=== PATIENT | male | born 1970 | race Caucasian/White ===

== ENCOUNTER → 2019-04-11 | Outpatient (CLI) | payer BC, OTHER ==
--- NOTE | 2019-04-11 16:12 | MR ---
Thoracic spine MRI without contrast HISTORY: Pain, history of trauma Multiplanar multisequence imaging through the thoracic spine There is no comparison Thoracic cord signal is normal. There is no significant spinal stenosis or foraminal encroachment. Th ere is a spinal curvature present at the upper thoracic spine. Thoracic vertebral bodies show preserved height and alignment. There is multilevel spondylosis with e ndplate discogenic marrow signal change. Some loss of disc height and signal is present. T2-3, T10-11 and T11-12 disc heights and signal are reduced consistent with disc desiccation and degenerative dis c disease. There is some facet arthropathy changes at the lower thoracic spine. There is no significa nt disc herniation. IMPRESSION: No evident traumatic abnormality. Degenerative disc disease. There is a spinal curvature.
== END | disposition home or self-care (01) ==
LOC: RADMRIMAIN 15:20
PROVIDERS: ATTEND Family Medicine
DX: M51.34 Other intervertebral disc degeneration, thoracic region (principal); M43.8X4 Other specified deforming dorsopathies, thoracic region
CPT/HCPCS: 72146

== ENCOUNTER → 2019-04-26 | Outpatient (CLI) | payer BC ==
--- NOTE | 2019-04-28 18:03 | MR ---
EXAMINATION TYPE: MR lumbar spine wo con DATE OF EXAM: 04/26/2019 COMPARISON: None HISTORY: LBP, BLE radic, slip and fall 04-02-19 TECHNIQUE: Multiplanar, multisequence images of the lumbar spine were acquired. FINDINGS: The lumbar spine vertebral bodies maintain normal vertebral body heights and alignment. Bon e marrow signal is within normal limits. Conus medullaris is unremarkable terminating at L1-L2. T2/T1 hyperintense vertebral body hemangioma is seen at S1 incidentally. Multilevel disc desiccation is no dave. L1-L2: There is a small broad-based disc bulge without spinal canal stenosis nor neural foraminal alfredo rowing. L2-L3: There is a broad-based disc bulge and arthropathy without spinal canal stenosis nor neural for aminal narrowing. L3-L4: There is a broad-based disc bulge and facet arthropathy resulting in very minimal bilateral ne ural foraminal narrowing without spinal canal stenosis. L4-L5: There is a small left paracentral annular tear and broad-based disc bulge with facet arthropat hy resulting in minimal bilateral neural foraminal narrowing. No spinal canal stenosis. L5-S1: There is a broad-based disc bulge and facet arthropathy without spinal canal stenosis nor neur al foraminal narrowing. IMPRESSION: Mild multilevel degenerative disc disease of the lumbar spine without focal disc herniation or spinal canal stenosis. Left paracentral small annular tear is seen at L4-L5.
== END | disposition home or self-care (01) ==
LOC: RADMRIMAIN 19:57
PROVIDERS: ATTEND Family Medicine
DX: M51.36 Other intervertebral disc degeneration, lumbar region (principal)
CPT/HCPCS: 72148